=== PATIENT | female | born 1960 | race Caucasian/White ===

== ENCOUNTER 2019-07-14 08:38 | Emergency (ER) | payer OTHER ==
[2019-07-14 09:01] VITALS: BP 122/75
--- NOTE | 2019-07-14 09:14 | ED ---
Skin Complaint - HPI Summary HPI Summary: 59 yr old with the complaint of itching, scabs on arms, legs and trunk. She has been itching and diggin at herself for well over a week. She has some increased redness to the left forearm where she has been digging. She has no other complaints. She has had bed bugs in her house as well. - History of Current Complaint Chief Complaint: UCSkin Time Seen by Provider: 07/14/19 08:55 Stated Complaint: SKIN COMP Pain Intensity: 1 - Allergy/Home Medications Allergies/Adverse Reactions: Allergies Allergy/AdvReac Type Severity Reaction Status Date / Time codeine Allergy Nausea And Verified 07/14/19 08:55 Vomiting Sulfa (Sulfonamide Allergy Nausea And Verified 07/14/19 08:55 Antibiotics) Vomiting Tetracyclines Allergy Nausea And Verified 07/14/19 08:55 Vomiting PMH/Surg Hx/FS Hx/Imm Hx Respiratory History: Reports: Hx Chronic Obstructive Pulmonary Disease (COPD) Infectious Disease History: No Infectious Disease History: Denies: Traveled Outside the [place] in Last 30 Days - Family History Known Family History: Positive: None - Social History Alcohol Use: None Substance Use Type: Reports: None Smoking Status (MU): Heavy Every Day Tobacco Smoker Type: Cigarettes Amount Used/How Often: 1 PPD Length of Time of Smoking/Using Tobacco: Since Age 15 Review of Systems Constitutional: Negative Positive: Rash All Other Systems Reviewed And Are Negative: Yes Physical Exam Triage Information Reviewed: Yes Vital Signs On Initial Exam: Initial Vitals Temp Pulse Resp BP Pulse Ox 98 F 100 24 122/75 88 07/14/19 08:53 07/14/19 08:53 07/14/19 08:53 07/14/19 08:53 07/14/19 08:53 Vital Signs Reviewed: Yes Appearance: Positive: Well-Appearing, No Pain Distress Skin: Positive: Warm, Other - scabs and tracts arms, legs and trunk. Consistent with scabies. Head/Face: Positive: Normal Head/Face Inspection Eyes: Positive: EOMI Neck: Positive: Nontender Respiratory/Lung Sounds: Positive: Clear to Auscultation, Breath Sounds Present Cardiovascular: Positive: RRR. Negative: Murmur Abdomen Description: Negative: Distended Musculoskeletal: Positive: Strength/ROM Intact Neurological: Positive: Sensory/Motor Intact, Alert, Oriented to Person Place, Time, CN Intact II-III, Normal Gait, Speech Normal Psychiatric: Positive: Normal Diagnostics - Vital Signs Vital Signs Temp Pulse Resp BP Pulse Ox 07/14/19 08:53 98 F 100 24 122/75 88 - Laboratory Lab Statement: Any lab studies that have been ordered have been reviewed, and results considered in the medical decision making process. Course/Dx - Course Course Of Treatment: scabies with cellulitis. Rx keflex and permethrin - Diagnoses Provider Diagnoses: Scabies, Cellulitis Discharge ED - Sign-Out/Discharge Documenting (check all that apply): Patient Departure All imaging exams completed and their final reports reviewed: No Studies - Discharge Plan Condition: Good Disposition: HOME Prescriptions: Cephalexin CAP* [Keflex CAP*] 500 mg PO TID #30 cap Permethrin [Elimite] 60 gm TP ONCE #60 cream..g. Patient Education Materials: Scabies (ED), Cellulitis (ED) Referrals: Francia Fong MD [Primary Care Provider] - 2 Days - Billing Disposition and Condition Condition: GOOD Disposition: Home
== END 2019-07-14 09:20 | disposition home or self-care (01) ==
LOC: UCCORT 08:38
DX: B86 Scabies (principal); L03.90 Cellulitis, unspecified; Z88.5 Allergy status to narcotic agent; Z88.2 Allergy status to sulfonamides; Z88.1 Allergy status to other antibiotic agents; F17.210 Nicotine dependence, cigarettes, uncomplicated
CPT/HCPCS: 99213; G0463